=== PATIENT | female | born 1995 | race Caucasian/White ===

== ENCOUNTER 2018-05-12 09:10 | Day surgery (SDC) | payer SELFPAY ==
[2018-05-11 12:17] VITALS: BMI 27.4
[2018-05-12] MEDS ORDERED: fentaNYL CITRATE 250 MCG/5 ML VIAL ONE ×2 (10:36→12:08)
[2018-05-12] MEDS ORDERED: ROCURONIUM BROMIDE 50 MG/5 ML VIAL ONE ×2 (10:36→13:19)
[2018-05-12] MEDS ORDERED: PROPOFOL 20 ML ONE ×5 (10:36→14:36)
[2018-05-12] MEDS ORDERED: MIDAZOLAM HCL 2 MG/2 ML SINGLE DOSE VIAL ONE (10:37)
[2018-05-12] MEDS ORDERED: EPINEPHrine/PF 1 MG/1 ML (1:1,000) AMPULE ONE (10:40)
[2018-05-12] MEDS ORDERED: LIDOCAINE HCL 1%, 10 MG/ML (20ML VIAL) ONE (10:40)
[2018-05-12] MEDS ORDERED: DESFLURANE GAS 240 ML BOTTLE IH ONE (10:42)
[2018-05-12] MEDS ORDERED: SCOPOLAMINE HYDROBROMIDE 1 PATCH PATCH.TD72 ONE (10:42)
[2018-05-12] MEDS ORDERED: DEXAMETHASONE SOD PHOSPHATE 4 MG/1 ML VIAL ONE (11:18)
[2018-05-12] MEDS ORDERED: LIDOCAINE HCL/PF 2% SDV 5ML VIAL ONE (11:18)
[2018-05-12] MEDS ORDERED: ceFAZolin SODIUM 1 GM VIAL ONE (11:18)
[2018-05-12] MEDS ORDERED: ceFAZolin SODIUM 1 GM VIAL IVPB ONE ×2 (11:23→12:14)
[2018-05-12] MEDS ORDERED: BUPIVACAINE HCL/PF 0.25% (2.5MG/ML) 10 ML VIAL ONE ×2 (11:28→13:33)
[2018-05-12] MEDS ORDERED: LIDOCAINE 1%-EPI 1:100,000 30 ML MDV IJ ONE ×2 (11:28→11:35)
[2018-05-12] MEDS ORDERED: BUPIVACAINE LIPOSOME/PF (EXPAREL) 266 MG/20 ML VIAL NR ONE ×4 (11:30→13:45)
[2018-05-12] MEDS ORDERED: LIDOCAINE 1%/EPI 1:100000 (50 ML MULTI DOSE VIAL) NR ONE (11:45)
[2018-05-12] MEDS ORDERED: VANCOMYCIN 1,000 MG VIAL (RESTRICTED TO ID ONLY) ONE (12:00)
[2018-05-12] MEDS ORDERED: GENTAMICIN SO4 80 MG/2 ML VIAL ONE (12:00)
[2018-05-12] MEDS ORDERED: BACITRACIN 50,000 UNITS VIAL TP ONE (12:13)
[2018-05-12] MEDS ORDERED: GENTAMICIN 80MG PREMIX BAG IVPB ONE (12:15)
[2018-05-12] MEDS ORDERED: BUPIVACAINE HCL/PF 0.25% (2.5MG/ML) 10 ML VIAL IJ ONE ×2 (12:44)
[2018-05-12] MEDS ORDERED: ePHEDrine SULFATE 50 MG/1 ML AMPULE ONE (13:08)
[2018-05-12] MEDS ORDERED: GLYCOPYRROLATE 0.2 MG/1 ML VIAL ONE (14:01)
[2018-05-12] MEDS ORDERED: NEOSTIGMINE METHYLSULFATE 0.5 MG/ML - 10 ML MDV ONE (14:01)
[2018-05-12] MEDS ORDERED: ACETAMINOPHEN 1000 MG/100 ML VIAL (NON FORMULARY) IVPB ONE ×2 (15:49→15:50)
[2018-05-12] MEDS ORDERED: ONDANSETRON 4 MG/2 ML VIAL IVPUSH PRN (15:49)
[2018-05-12] MEDS ORDERED: LACTATED RINGERS SOLUTION 1,000 ML IV SCH (16:00)
[2018-05-12] MEDS ORDERED: oxyCODONE HCL 5 MG TABLET ONE (17:39)
[2018-05-12] MEDS ORDERED: ONDANSETRON 4 MG/2 ML VIAL ONE (18:15)
[2018-05-12] MEDS ORDERED: ONDANSETRON 4 MG/2 ML VIAL IVPUSH ONE (18:24)
[2018-05-12] MEDS ORDERED: NORETHINDRONE AC ETH ESTRADIOL PO SCH (22:00)
[2018-05-12] MEDS: oxyCODONE HCL 5 MG TABLET PO PRN (22:23)
[2018-05-13] MEDS: oxyCODONE HCL 5 MG TABLET PO PRN ×3 (03:03→08:34)
[2018-05-13] MEDS ORDERED: LEVOTHYROXINE NA 125 MCG TABLET (FP) PO SCH (07:00)
[2018-05-13] MEDS ORDERED: oxyCODONE HCL 5 MG TABLET PO PRN ×3 (08:20→15:29)
[2018-05-13] MEDS ORDERED: ACETAMINOPHEN 325 MG TABLET (FP) PO PRN ×2 (08:21→08:28)
--- NOTE | 2018-05-13 10:22 | OP ---
DATE OF OPERATION: 05/12/2018 SURGEON: Timmy Lynn MD [employer] SURGEON: YESSICA Wilks PREOPERATIVE DIAGNOSES: 1. 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 2. Abdominal deformity status post weight loss with abdominal laxity. POSTOPERATIVE DIAGNOSES: 1. 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 2. Abdominal deformity status post weight loss with abdominal laxity. OPERATIVE PROCEDURE: 1. Bilateral mastopexy, augmentation of breasts with silicone gel implants. 2. Extended abdominoplasty. OPERATIVE INDICATIONS: Patient is a 23-year-old white female who underwent a gastric weight loss procedure with sleeve in 2017. The patient presented with deformities of the breasts including ptosis of the breasts with the nipple-areolar complex below the inframammary fold and loss of volume due to weight loss. The abdomen showed excessive lack of support and abdominal excess skin. The risks and benefits of surgical versus nonsurgical alternatives as well as the material complications were described to the patient on multiple occasions preoperatively. The patient was imaged in the office preoperatively, and all of the discussions were held with the patient preoperatively and again today in the holding area. The patient agreed to the planned procedure with her mother in attendance. The patient was marked in the standing position preoperatively for outline of the mastopexy augmentation as well as extended abdominoplasty with scar length and procedure explained in detail. OPERATIVE PROCEDURE IN DETAIL: Patient was taken to the operating room, and after induction of general anesthesia in the supine position, both arms were extended and padded. Venodyne boots were placed. The entire abdomen and breasts were prepped with ChloraPrep solution over their entire extent. Sterile drapes were placed in the usual fashion. After timeout, 1% local lidocaine anesthesia with 1:100,000 epinephrine was injected into the planned markings of the breasts with Adams pattern reduction, and the incisions for the elliptical excision on the abdominal wall in the usual fashion for abdominoplasty were carried out extensively to the lateral portions of the flanks, extending down to the table. At this point a circumareolar incision was made around a nipple-areolar cutter of 42 mm, and then areas of the pattern were deepithelialized. No breast tissue was removed. A small incision was made in the inframammary area, extending down through the subcutaneous tissue which had been deepithelialized, into the deep tissue into the area of the pectoralis major muscle. At this point, using optical magnification and the lighted retractor, a pocket was created in the subpectoral plane superiorly to the 2nd rib, medially to the sternal fibers, and then laterally to the anterior axillary line. An implant was then chosen according to the patient's wishes, which was a Sientra smooth, round, high-profile style 107, 280-mL Sientra implant. A sizer was tried previous to this which showed good shape and contour for the patient's desire of a full C cup. This was placed into the pocket using the Daigle funnel after copious irrigation with triple antibiotic solution. At this point, the pocket was then closed using 2-0 Vicryl sutures in interrupted fashion, closing off the pocket and maintaining the medial positioning of the implant for projection. The skin and subcutaneous tissue were then undermined and closed in a tension-free fashion using 2-0 Vicryl suture on the deep tissue and dermis, 3-0 Biosyn in subdural fashion, and a running subcuticular suture with V-Loc 3 and 2-0 around the nipple-areolar complex which was inset in its new position. The exact same procedure was carried out symmetrically on the opposite side, also placing the Sientra 280-mL high-profile, round, smooth silicone gel implant. Once this was established and the inframammary fold set, the abdominal area was incised according to the pattern down through the skin and subcutaneous tissue, through the subcutaneous tissue, down to the underlying musculature. Dissection was carried along the anterior rectus fascia superiorly over the entire length of the incision, extending from hip to hip and up to the umbilicus, which was circumscribed and dropped back. Dissection was carried to the midline up to the xiphoid. All hemostasis was meticulously obtained throughout the pocket, and copious irrigation was performed. The markings which were made previously were seen to be adequate, and the upper incision was made, removing a large block of tissue from the lower abdomen, which weighed approximately 5 pounds. The skin and subcutaneous tissue was removed, and the abdominal wall was brought down into its new anatomic position. After regaining hemostasis again, the lateral portions of the flanks were also defatted, and another 1 pound of tissue was removed from the lateral flanks. Hemostasis again meticulously obtained, and then a subcutaneous deep tissue closure was carried out using 2-0 Vicryl suture on Chey fascia, 3-0 Biosyn in a deep dermal fashion, and then a subcuticular suture using V-Loc suture was carried out on the skin. The umbilicus was brought in through its new anatomic position using 3 and 4-0 Biosyn suture in the usual fashion and showed good contour and shape to the abdominal wall. A Prineo dressing was placed over the anterior abdominal incisions. Steri-Strips and Mastisol were placed on the breasts, and a compressive fluff dressing was placed over the abdomen and breasts, with a Surgi-Bra and a binder. She was awakened, extubated, and positioned in the semi-Freeman's position which was used during the procedure. She was placed into her bed and transferred to recovery room in satisfactory condition. TIMMY LYNN M.D. [id number]
[2018-05-13 10:51] VITALS: BP 102/57; PULSE 78; TEMP 98.9
== END 2018-05-13 11:01 | disposition home or self-care (01) ==
LOC: JASU-SURG 09:10 → J6S 19:18 → JASU-SURG 05-13 11:01
PROVIDERS: ATTEND Plastic Surgery
PROC: 0HRV0JZ Replacement of Bilateral Breast with Synthetic Substitute, Open Approach (ICD-10-PCS; principal; 2018-05-12 11:43)
PROC: 0H0V0JZ Alteration of Bilateral Breast with Synthetic Substitute, Open Approach (ICD-10-PCS; 2018-05-12 11:43)
PROC: 0J080ZZ Alteration of Abdomen Subcutaneous Tissue and Fascia, Open Approach (ICD-10-PCS; 2018-05-12 11:43)
DX: N64.82 Hypoplasia of breast (principal); N64.81 Ptosis of breast; L57.4 Cutis laxa senilis
CPT/HCPCS: 84703; 94760; J0131